=== PATIENT | female | born 1945 | race Caucasian/White ===

== ENCOUNTER 2017-12-04 08:49 | Outpatient (CLI) | payer MEDICARE | END 2017-12-04 08:50 | disposition home or self-care (01) | LOC: BICMAMMO 08:49 | PROVIDERS: ATTEND Obstetrics & Gynecology | DX: Z12.31 Encounter for screening mammogram for malignant neoplasm of breast (principal) | CPT/HCPCS: 77063; 77067 ==

== ENCOUNTER 2018-03-01 09:10 | Outpatient (CLI) | payer MEDICARE ==
--- NOTE | 2018-03-01 10:24 | RAD ---
THREE VIEWS LEFT HAND: COMPARISON: None. HISTORY: Left hand injury with pain. FINDINGS: Three views left hand show no evidence of acute fracture or dislocation. No degenerative changes are seen. Moderate dorsal soft tissue swelling is seen. IMPRESSION: No evidence of acute osseous abnormality. POS: YESI
== END 2018-03-01 09:11 | disposition home or self-care (01) ==
LOC: BICRAD 09:10
PROVIDERS: ATTEND Family Medicine
DX: S69.92XA Unspecified injury of left wrist, hand and finger(s), initial encounter (principal)

== ENCOUNTER 2018-03-15 14:44 | Outpatient (CLI) | payer MEDICARE ==
--- NOTE | 2018-03-15 15:31 | RAD ---
TWO VIEWS RIGHT FOOT: Comparison: None. History: Right foot pain after hitting it on a door frame. FINDINGS: Three views of the right foot shows no evidence of acute fracture or dislocation. Mild dorsal soft ti ssue swelling is seen. No degenerative changes are seen. IMPRESSION: No evidence of acute osseous abnormality. POS: TPC
== END 2018-03-15 14:45 | disposition home or self-care (01) ==
LOC: BICRAD 14:44
PROVIDERS: ATTEND Family Medicine
DX: M79.671 Pain in right foot (principal)

== ENCOUNTER 2018-07-02 20:30 | Outpatient (CLI) | payer MEDICARE | END 2018-07-02 20:31 | disposition home or self-care (01) | LOC: SLEEPLAB 20:30 | PROVIDERS: ATTEND Family Medicine | DX: G47.33 Obstructive sleep apnea (adult) (pediatric) (principal); G25.81 Restless legs syndrome; R53.83 Other fatigue; R51 Headache; I10 Essential (primary) hypertension; E11.9 Type 2 diabetes mellitus without complications; G47.00 Insomnia, unspecified; G47.10 Hypersomnia, unspecified | CPT/HCPCS: 95810 ==

== ENCOUNTER 2018-11-12 13:19 | Outpatient (CLI) | payer MEDICARE ==
--- NOTE | 2018-11-12 14:04 | BD ---
BONE DENSITOMETRY: Date: 11/12/18 INDICATION: Postmenopausal osteoporosis screening. FINDINGS: Lumbar Spine: BMD (g/cm2) L1 0.804 T-Score: -1.7 L2 0.766 T-Score: -2.4 L3 0.882 T-Score: -1.8 L4 0.778 T-Score: -2.6 Total 0.809 T-Score: -2.2 Left Femoral Neck: 0.664 T-Score: -1.7 Total Femur: 0.872 T-Score: -0.6 IMPRESSION: Bone mineral density of the lumbar spine and femoral neck both indicate osteopenia. 10 YEAR FRACTURE RISK: Major osteoporotic fracture: 11% Hip fracture: 2.2% POS: OFF
== END 2018-11-12 13:20 | disposition home or self-care (01) ==
LOC: BICMAMMO 13:19
PROVIDERS: ATTEND Obstetrics & Gynecology
DX: Z13.820 Encounter for screening for osteoporosis (principal); M81.0 Age-related osteoporosis without current pathological fracture; M85.89 Other specified disorders of bone density and structure, multiple sites
CPT/HCPCS: 77080

== ENCOUNTER 2019-01-02 15:26 | Outpatient (CLI) | payer MEDICARE ==
--- NOTE | 2019-01-02 15:52 | MMO ---
Bilateral MAMMO Bilat Screen [facility]. CLINICAL HISTORY: Patient is 73 years old and is seen for screening. The patient has no family history of breast cancer. The patient has no personal history of cancer. VIEWS: The views performed were: bilateral craniocaudal with tomosynthesis and bilateral mediolateral oblique with tomosynthesis. FILMS COMPARED: The present examination has been compared to prior imaging studies performed at [facility] on 05/12/2011, 09/24/2015, 09/26/2016 and 12/04/2017. This study has been interpreted with the assistance of computer-aided detection. MAMMOGRAM FINDINGS: The breasts are heterogeneously dense, which could obscure a lesion on mammography. There are stable benign appearing calcifications seen in both breasts. There are no suspicious masses, suspicious calcifications, or new areas of architectural distortion. IMPRESSION: THERE IS NO MAMMOGRAPHIC EVIDENCE OF MALIGNANCY. A ROUTINE FOLLOW-UP MAMMOGRAM IN 1 YEAR IS RECOMMENDED. THE RESULTS OF THIS EXAM WERE SENT TO THE PATIENT. ACR BI-RADS Category 2 - Benign finding MAMMOGRAPHY NOTE: 1. A negative mammogram report should not delay a biopsy if a dominant of clinically suspicious mass is present. 2. Approximately 10% to 15% of breast cancers are not detected by mammography. 3. Adenosis and dense breasts may obscure an underlying neoplasm. Reported by: MADDI FLORENTINO MD Electonically Signed: [id number]
== END 2019-01-02 15:27 | disposition home or self-care (01) ==
LOC: BICMAMMO 15:26
PROVIDERS: ATTEND Obstetrics & Gynecology
DX: Z12.31 Encounter for screening mammogram for malignant neoplasm of breast (principal)
CPT/HCPCS: 77063; 77067

== ENCOUNTER 2020-01-07 13:04 | Outpatient (CLI) | payer MEDICARE ==
--- NOTE | 2020-01-07 13:43 | MMO ---
Bilateral MAMMO Bilat Screen [facility]. CLINICAL HISTORY: Patient is 74 years old and is seen for screening. The patient has no family history of breast cancer. The patient has no personal history of cancer. VIEWS: The views performed were: bilateral craniocaudal with tomosynthesis and bilateral mediolateral oblique with tomosynthesis. FILMS COMPARED: The present examination has been compared to prior imaging studies performed at [facility] on 09/24/2015, 09/26/2016, 12/04/2017 and 01/02/2019. This study has been interpreted with the assistance of computer-aided detection. MAMMOGRAM FINDINGS: The breasts are heterogeneously dense, which could obscure a lesion on mammography. There are stable benign appearing calcifications seen in both breasts. There are no suspicious masses, suspicious calcifications, or new areas of architectural distortion. IMPRESSION: THERE IS NO MAMMOGRAPHIC EVIDENCE OF MALIGNANCY. A ROUTINE FOLLOW-UP MAMMOGRAM IN 1 YEAR IS RECOMMENDED. THE RESULTS OF THIS EXAM WERE SENT TO THE PATIENT. ACR BI-RADS Category 2 - Benign finding MAMMOGRAPHY NOTE: 1. A negative mammogram report should not delay a biopsy if a dominant of clinically suspicious mass is present. 2. Approximately 10% to 15% of breast cancers are not detected by mammography. 3. Adenosis and dense breasts may obscure an underlying neoplasm. Reported by: MADDI FLORENTINO MD Electonically Signed: [id number]
== END 2020-01-07 13:05 | disposition home or self-care (01) ==
LOC: BICMAMMO 13:04
PROVIDERS: ATTEND Family Medicine
DX: Z12.31 Encounter for screening mammogram for malignant neoplasm of breast (principal)
CPT/HCPCS: 77063; 77067

== ENCOUNTER 2020-12-07 09:59 | Outpatient (CLI) | payer MEDICARE | END 2020-12-07 10:00 | disposition home or self-care (01) | LOC: BICMAMMO 09:59 | PROVIDERS: ATTEND Family Medicine | DX: Z13.820 Encounter for screening for osteoporosis (principal); M85.89 Other specified disorders of bone density and structure, multiple sites | CPT/HCPCS: 77080 ==

== ENCOUNTER 2021-12-22 11:42 | Outpatient (CLI) | payer MEDICARE | END 2021-12-22 11:43 | disposition home or self-care (01) | LOC: BICMAMMO 11:42 | PROVIDERS: ATTEND Family Medicine | DX: Z12.31 Encounter for screening mammogram for malignant neoplasm of breast (principal) | CPT/HCPCS: 77063; 77067 ==

== ENCOUNTER 2022-09-15 11:39 | Outpatient (CLI) | payer MEDICARE | END 2022-09-15 11:40 | disposition home or self-care (01) | LOC: RAD 11:39 | PROVIDERS: ATTEND Nurse Practitioner Family | DX: S29.8XXA Other specified injuries of thorax, initial encounter (principal); W19.XXXA Unspecified fall, initial encounter | CPT/HCPCS: 71046 ==

== ENCOUNTER 2022-10-04 18:04 | Emergency (ER) | payer MEDICARE ==
[2022-10-04 20:04] LABS: #Eosinphils 0.2 thou/uL (0.0-0.7); #Monocytes 0.5 thou/uL (0.11-0.59); %Basophils 0.4 % (0.0-1.0); %Eosinophils 2.7 % (0.0-10.0); %Lymphocytes 27.4 % (21.0-51.0); %Monocytes 6.6 % (0.0-10.0); %Neutrophils 62.6 % (42.0-75.0); Hemoglobin 12.1 g/dL (12.0-16.0); Mean Corpuscular HGB CONC 33.9 g/dL (32.0-36.0); Mean Corpuscular Hemoglobin 31.8 pg (27.0-31.0); Mean Corpuscular Volume 93.7 fl (78.0-98.0); Mean Platelet Volume 9.8 fL (7.4-10.4); Platelet Count 332 10x3/uL (130-400); RBC Distribution Width 12.2 % (11.5-14.5); Red Blood Cell (RBC) Count 3.81 mill/uL (4.20-5.40); White Blood Cell (WBC) Count 7.9 10x3/uL (4.8-10.8)
[2022-10-04 20:27] LABS: Anion Gap 15 mmol/L (10-20); BUN (Urea Nitrogen) 13 mg/dL (9.8-20.1); Calc. Creatinine Clearance 0 mL/min (70-130); Calcium 8.9 mg/dL (7.8-10.44); Carbon Dioxide 22 mmol/L (23-31); Chloride 98 mmol/L (98-107); Estimated GFR 59; Glucose 146 mg/dL (83-110); Potassium 3.9 mmol/L (3.5-5.1); Sodium 131 mmol/L (136-145)
== END 2022-10-04 21:05 | disposition home or self-care (01) ==
LOC: ERS 18:04
DX: I10 Essential (primary) hypertension (principal); E11.9 Type 2 diabetes mellitus without complications; Z79.84 Long term (current) use of oral hypoglycemic drugs
CPT/HCPCS: 36415; 71046; 80048; 84484; 85025; 93005

== ENCOUNTER 2022-11-07 22:11 | Observation (INO) | payer MEDICARE ==
[2022-11-07] MEDS ORDERED: Morphine 4 MG/ML VIAL ONE (22:34)
[2022-11-07 22:57] LABS: #Basophils 0.1 thou/uL (0.0-0.2); #Eosinphils 0.3 thou/uL (0.0-0.7); #Monocytes 0.6 thou/uL (0.11-0.59); #Neutrophils 7.3 thou/uL (1.40-6.50); %Basophils 0.6 % (0.0-1.0); %Eosinophils 2.8 % (0.0-10.0); %Lymphocytes 18.8 % (21.0-51.0); %Monocytes 5.9 % (0.0-10.0); %Neutrophils 71.5 % (42.0-75.0); Hematocrit 36.1 % (36.0-47.0); Hemoglobin 12.3 g/dL (12.0-16.0); Mean Corpuscular HGB CONC 34.1 g/dL (32.0-36.0); Mean Corpuscular Hemoglobin 31.7 pg (27.0-31.0); Mean Platelet Volume 9.9 fL (7.4-10.4); Platelet Count 322 10x3/uL (130-400); RBC Distribution Width 12.5 % (11.5-14.5); Red Blood Cell (RBC) Count 3.88 mill/uL (4.20-5.40); White Blood Cell (WBC) Count 10.2 10x3/uL (4.8-10.8)
[2022-11-07 23:21] LABS: ALT (SGPT) 7 U/L (8-55); AST (SGOT) 12 U/L (5-34); Albumin 3.9 g/dL (3.4-4.8); Alkaline Phosphatase 84 U/L (40-110); Anion Gap 13 mmol/L (10-20); BUN (Urea Nitrogen) 18 mg/dL (9.8-20.1); Bilirubin, Total 0.2 mg/dL (0.2-1.2); Calc. Creatinine Clearance 0 mL/min (70-130); Calcium 9.5 mg/dL (7.8-10.44); Carbon Dioxide 26 mmol/L (23-31); Chloride 98 mmol/L (98-107); Estimated GFR 45; Globulin 2.6 g/dL (2.4-3.5); Glucose 280 mg/dL (83-110); Potassium 3.4 mmol/L (3.5-5.1); Protein, Total 6.5 g/dL (5.8-8.1); Sodium 134 mmol/L (136-145)
[2022-11-08] MEDS ORDERED: Morphine 4 MG/ML VIAL ONE (00:59)
[2022-11-08] MEDS ORDERED: Ketorolac Tromethamine 30 MG/ML VIAL ONE (00:59)
[2022-11-08] MEDS ORDERED: Morphine 2 MG/ML VIAL SLOW IVP PRN (03:32)
[2022-11-08] MEDS ORDERED: Senokot S 8.6-50 MG TAB PO PRN (03:33)
[2022-11-08] MEDS ORDERED: Dextrose 5% in Water 1,000 ML IV PRN (03:33)
[2022-11-08] MEDS ORDERED: Ondansetron ODT 4 MG TAB PO PRN (03:33)
[2022-11-08] MEDS ORDERED: Acetaminophen 325 MG TAB PO PRN (03:33)
[2022-11-08] MEDS ORDERED: Dextrose 50% Abboject 50 ML SYRINGE SLOW IVP PRN (03:33)
[2022-11-08] MEDS ORDERED: Glucagon 1 MG/ML KIT IM PRN (03:33)
[2022-11-08] MEDS ORDERED: HYDROcodone/Acetaminophen 5/325 mg Tablet PO PRN (03:33)
[2022-11-08] MEDS ORDERED: HumaLOG 300 UNITS/3 ML VIAL SC PRN (03:33)
[2022-11-08] MEDS ORDERED: Ondansetron PF 4 MG/2 ML Vial IVP PRN (03:33)
[2022-11-08] MEDS ORDERED: Albuterol 200 PUFF (6.7GM INHALER) INH PRN (03:35)
[2022-11-08] MEDS ORDERED: Potassium Chloride 20 MEQ TAB PO SCH (03:45)
[2022-11-08] MEDS ORDERED: Electrolyte Replacement Protocol 1 EACH FS SCH (03:45)
[2022-11-08 05:03] VITALS: BMI 35.4
[2022-11-08] MEDS: HumaLOG 300 UNITS/3 ML VIAL SC PRN ×2 (05:05→13:17)
[2022-11-08 07:57] VITALS: TEMP 98.2
[2022-11-08] MEDS ORDERED: Sertraline 100 MG TAB PO SCH (09:00)
[2022-11-08] MEDS ORDERED: Amlodipine 5 MG TAB PO SCH (09:00)
[2022-11-08 17:16] VITALS: BP 159/84
[2022-11-08] MEDS ORDERED: Atorvastatin Calcium 10 MG TAB PO SCH (21:00)
== END 2022-11-08 16:02 | disposition home or self-care (01) ==
LOC: ERS 22:11 → T4-B 11-08 03:09
PROVIDERS: ADMIT Student in an Organized Health Care Education/Training Program; ATTEND Internal Medicine
DX: S42.201A Unspecified fracture of upper end of right humerus, initial encounter for closed fracture (principal); E87.6 Hypokalemia; E87.1 Hypo-osmolality and hyponatremia; G25.81 Restless legs syndrome; I10 Essential (primary) hypertension; E78.5 Hyperlipidemia, unspecified; E11.9 Type 2 diabetes mellitus without complications; K21.9 Gastro-esophageal reflux disease without esophagitis; J45.909 Unspecified asthma, uncomplicated; Z90.89 Acquired absence of other organs; Z87.891 Personal history of nicotine dependence; Z79.899 Other long term (current) drug therapy; Z79.84 Long term (current) use of oral hypoglycemic drugs; W18.30XA Fall on same level, unspecified, initial encounter
CPT/HCPCS: 70450; 72125; 73030; 80053; 82962; 85025; 96372; 97116; 97535; G0378 ×2; 36415; 36416; 96374; 96375; 96376; J1650; J1815; J1885; J2270

== ENCOUNTER 2023-04-10 12:32 | Outpatient (CLI) | payer MEDICARE | END 2023-04-10 12:33 | disposition home or self-care (01) | LOC: BICMAMMO 12:32 | PROVIDERS: ATTEND Nurse Practitioner Family | DX: Z12.31 Encounter for screening mammogram for malignant neoplasm of breast (principal) | CPT/HCPCS: 77063; 77067 ==

== ENCOUNTER 2023-04-11 07:46 | Outpatient (CLI) | payer MEDICARE | END 2023-04-11 07:47 | disposition home or self-care (01) | LOC: BICULT 07:46 | PROVIDERS: ATTEND Internal Medicine Nephrology | DX: I13.10 Hypertensive heart and chronic kidney disease without heart failure, with stage 1 through stage 4 chronic kidney disease, or unspecified chronic kidney disease (principal); E11.22 Type 2 diabetes mellitus with diabetic chronic kidney disease; N18.9 Chronic kidney disease, unspecified; E11.51 Type 2 diabetes mellitus with diabetic peripheral angiopathy without gangrene; E78.5 Hyperlipidemia, unspecified; J44.9 Chronic obstructive pulmonary disease, unspecified; M19.90 Unspecified osteoarthritis, unspecified site; K21.9 Gastro-esophageal reflux disease without esophagitis; K57.90 Diverticulosis of intestine, part unspecified, without perforation or abscess without bleeding; N39.0 Urinary tract infection, site not specified; N28.89 Other specified disorders of kidney and ureter; R80.9 Proteinuria, unspecified | CPT/HCPCS: 76770; 93975 ==